=== PATIENT | female | born 1965 | race Caucasian/White ===

== ENCOUNTER → 2016-09-04 | Outpatient (CLI) | payer OTHER | LOC: MMPC 11:11 | DX: E78.5 Hyperlipidemia, unspecified (principal); E55.9 Vitamin D deficiency, unspecified; R23.2 Flushing; B35.9 Dermatophytosis, unspecified | CPT/HCPCS: 99213; G0463 ==

== ENCOUNTER → 2016-09-11 | Outpatient (CLI) | payer OTHER | LOC: MOB LAB 09:13 | DX: J02.9 Acute pharyngitis, unspecified (principal); J34.2 Deviated nasal septum; J06.9 Acute upper respiratory infection, unspecified | CPT/HCPCS: 99212; G0463 ==

== ENCOUNTER → 2016-11-15 | Outpatient (CLI) | payer OTHER | LOC: MMPC 09:00 | PROVIDERS: ATTEND Obstetrics & Gynecology | DX: N95.2 Postmenopausal atrophic vaginitis (principal); N39.3 Stress incontinence (female) (male); R23.2 Flushing; A60.00 Herpesviral infection of urogenital system, unspecified | CPT/HCPCS: G0101; G0439; G0463 ==